=== PATIENT | female | born 1970 | race Caucasian/White ===

== ENCOUNTER 2022-06-02 17:39 | Emergency (ER) | payer OTHER, BC, SELFPAY ==
--- NOTE | ~2022-06-02 | XR_ITS ---
EXAMINATION: XR chest 2V Exam Date/Time: 06/02/2022 18:55 TRAFFIC AGENT HISTORY: cp FOR 3 WEEKS. HTN Comparison: None available. RESULT: Lines, tubes, and devices: None. Lungs and pleura: No focal consolidation, effusion, or pneumothorax. Linear scar/atelectasis in the anterior and peripheral left lower lung. Cardiomediastinal silhouette: Minimal arch calcification. Other: No acute osseous or upper abdominal finding. IMPRESSION: No acute cardiopulmonary process. Reviewed, dictated and finalized at location K. FIC AGENT
--- NOTE | 2022-06-02 17:40 | ECG_ITS ---
Measurements Intervals [place] Rate: 76 P: 48 UT: 139 QRS: 17 QRSD: 86 T: 50 QT: 360 QTc: 405 Interpretive Statements SINUS RHYTHM MINIMAL VOLTAGE CRITERIA FOR LVH, CONSIDER NORMAL VARIANT [MEETS CRITERIA IN ONE OF: R(aVL), S(V1), R(V5), R(V5/V6)+S(V1)] NO PREVIOUS ECG AVAILABLE FOR COMPARISON Electronically Signed On 06-03-2022 15:20:45 [employer]PERATION SHIFT SUPERVISOR by Annika Ruby M.D.
[2022-06-02 18:07] VITALS: BP 166/97; PULSE 89; RESP 16; O2SAT 100
[2022-06-02 18:28] LABS: Basophils Percent Auto 0.6 % (0.2-1.2); Eosinophils Absolute Auto 0.1 K/mm3 (0-0.3); Eosinophils Percent Auto 1.4 % (0-4.4); Hematocrit 41.3 % (37.0-47.0); Hemoglobin 13.6 g/dL (12.0-15.0); Immature Granulocyte Absolute 0.02 K/mm3 (0.00-0.031); Immature Granulocyte Percent A 0.3 % (0-0.5); Lymphocytes Absolute Auto 2.43 K/mm3 (0.9-3.2); Lymphocytes Percent Auto 33.6 % (18.3-44.2); Mean Corpuscular HGB Conc 32.9 g/dl (32-36); Mean Corpuscular Hemoglobin 28.2 pg (26-34); Mean Corpuscular Volume 85.5 fl (80-100); Mean Platelet Volume 11.2 fl (7.4-10.4); Monocytes Absolute Auto 0.5 K/mm3 (0.1-0.6); Monocytes Percent Auto 6.2 % (2.6-8.5); Neutrophils Absolute Auto 4.2 K/mm3 (1.3-6.7); Neutrophils Percent Auto 57.9 % (45.5-73.1); Platelet Count Result 273 k/mm3 (150-375); Red Blood Count 4.83 M/mm3 (4.2-5.4); Red Cell Distribution Width 12.6 % (11.5-14.5); White Blood Count 7.2 K/mm3 (4.5-10.0)
[2022-06-02 18:41] LABS: Prothrombin Time 12.3 Seconds (11.1-14.7)
[2022-06-02 18:46] LABS: Alanine Aminotransferase 43 U/L (6-35); Albumin Level 4.6 g/dL (3.5-5.1); Alkaline Phosphatase 71 U/L (38-126); Anion Gap 9 mmol/L (8-16); Aspartate Amino Transferase 31 U/L (14-36); Bilirubin,Total 0.2 mg/dL (0.2-1.3); Blood Urea Nitrogen 19 mg/dL (7-17); Calcium 8.9 mg/dL (8.4-10.2); Carbon Dioxide 29 mmol/L (22-30); Chloride 98 mmol/L (98-107); Estimated CRCL calculation 90 ml/min; Estimated Glomerular Filt Rate > 60; Glucose 125 mg/dL (65-110); Lipase 157 U/L (23-300); Potassium 3.8 mmol/L (3.4-5.0); Sodium 136 mmol/L (137-145)
[2022-06-02 18:57] LABS: Troponin I < 0.012 ng/mL (0.000-0.034)
[2022-06-02 22:22] LABS: Troponin I < 0.012 ng/mL (0.000-0.034)
[2022-06-02 23:27] VITALS: BP 143/84; PULSE 81; RESP 12; O2SAT 99
--- NOTE | 2022-06-03 00:08 | ED.GENADULT ---
HPI - General Adult General Chief complaint: Chest Pain Stated complaint: chest pain x 3 weeks Time Seen by Provider: 06/02/22 23:50 History of Present Illness HPI narrative: Patient 52-year-old female presents the emergency department with chief complaint of chest pain. Patient states for the last 3 weeks has been having discomfort on the left side of her chest. Patient states the pain is a squeezing-like sensation that is intermittent but has been coming and going for the last several weeks. The patient states that she has also had generalized pain over her entire body that has been going on for the last year the patient reports she has seen her primary care provider for the generalized pain had rheumatological tests done that were negative. The patient states that she had talked to her primary care provider who recommended that she come to the emergency department to have initial testing done. Related Data Allergies Allergy/AdvReac Type Severity Reaction Status Date / Time No Known Allergies Allergy Mild Unverified 08/22/05 06:40 NKDA Allergy Mild Uncoded 08/18/05 16:03 Review of Systems Review of Systems: A 10 system review of systems was completed on the patient and is negative except for what is stated in the HPI. Nursing and ancillary documentation was reviewed. Exam Narrative: GENERAL: Well-appearing, well-nourished, and in no acute distress. HEAD: Normocephalic, atraumatic. EYES: PERRLA and EOMI. ENT: Nares clear, no rhinorrhea or epistaxis. Mucous membranes moist. NECK: Supple. CHEST: Clear to auscultation. No respiratory distress. HEART: Regular rate and rhythm. No murmur heard. Normal peripheral pulses. ABDOMEN: Soft, nontender, nondistended, normal active bowel sounds. EXTREMITIES: Normal range of motion. No edema. SKIN: Warm, dry, no rash. NEURO: No focal deficits. Alert and oriented x3. PSYCH: Normal mood and affect. Course Course Emergency Course: EKG is sinus rhythm rate of [address] elevation or ST depression Vital Signs Vital signs: Vital Signs Pulse Rate 89 06/02/22 18:07 Respiratory Rate 16 06/02/22 18:07 Blood Pressure 166/97 H 06/02/22 18:07 Pulse Oximetry 100 06/02/22 18:07 Pulse Rate 81 06/02/22 23:27 Respiratory Rate 12 06/02/22 23:27 Blood Pressure 143/84 H 06/02/22 23:27 Pulse Oximetry 99 06/02/22 23:27 Medical Decision Making Vital Signs Vital Signs: Vital Signs Pulse Rate 89 06/02/22 18:07 Respiratory Rate 16 06/02/22 18:07 Blood Pressure 166/97 H 06/02/22 18:07 Pulse Oximetry 100 06/02/22 18:07 Pulse Rate 81 06/02/22 23:27 Respiratory Rate 12 06/02/22 23:27 Blood Pressure 143/84 H 06/02/22 23:27 Pulse Oximetry 99 06/02/22 23:27 Lab Data 06/02/22 18:14 06/02/22 18:14 Labs: Lab Results 06/02/22 06/02/22 06/02/22 Range/Units 18:14 18:14 18:14 WBC 7.2 (4.5-10.0) K/mm3 RBC 4.83 (4.2-5.4) M/mm3 Hgb 13.6 (12.0-15.0) g/dL Hct 41.3 (37.0-47.0) % MCV 85.5 (80-100) fl MCH 28.2 (26-34) pg MCHC 32.9 (32-36) g/dl RDW 12.6 (11.5-14.5) % Plt Count 273 (150-375) k/mm3 MPV 11.2 H (7.4-10.4) fl Immature Gran % (Auto) 0.3 (0-0.5) % Neut % (Auto) 57.9 (45.5-73.1) % Lymph % (Auto) 33.6 (18.3-44.2) % [place] % (Auto) 6.2 (2.6-8.5) % Eos % (Auto) 1.4 (0-4.4) % Baso % (Auto) 0.6 (0.2-1.2) % Lymph # (Auto) 2.43 (0.9-3.2) K/mm3 [place]atte # (Auto) 0.5 (0.1-0.6) K/mm3 Eos # (Auto) 0.1 (0-0.3) K/mm3 Baso # (Auto) 0.0 (0.0-0.1) K/mm3 Abs Immat Gran (auto) 0.02 (0.00-0.031) K/mm3 Absolute Neuts (auto) 4.2 (1.3-6.7) K/mm3 Absolute Nucleated RBC 0.0 (0.0-0.012) K/mm3 Nucleated RBC % 0.0 (0.0-0.2) % PT 12.3 (11.1-14.7) Seconds INR 1.0 APTT 28.0 (22.3-36.8) SECONDS Sodium 136 L (137-145) mmol/L Potassium 3.8 (3.4-5.0) mmol/L Chloride 98 (98-107) mmol/L C
[2022-06-03 00:20] VITALS: BP 129/70; PULSE 72; RESP 19; O2SAT 98
== END 2022-06-03 00:25 | disposition home or self-care (01) ==
PROVIDERS: Emergency Medicine; Emergency Provider Emergency Medicine; PCP Physician Assistant
DX: R07.89 Other chest pain (principal)
CPT/HCPCS: 36415; 71046; 80053; 83690; 84484; 85025; 85610; 85730; 93005; 99284